=== PATIENT | female | born 1945 | race American Indian/Alaskan Native ===

== ENCOUNTER 2017-09-14 08:53 | Day surgery (SDC) | payer MEDICARE ==
[2017-09-14] MEDS ORDERED: Propofol 10 mg/ml Inj (20 ML) ONE (12:00)
[2017-09-14 12:44] VITALS: TEMP 97.3
[2017-09-14 13:17] VITALS: PULSE 54
[2017-09-14 13:57] VITALS: BP 122/64; RESP 16; O2SAT 98
== END 2017-09-14 13:54 | disposition home or self-care (01) ==
LOC: C.ENDO 08:53
PROVIDERS: ATTEND Internal Medicine
DX: Z86.010 Personal history of colon polyps (principal); K52.9 Noninfective gastroenteritis and colitis, unspecified; K57.30 Diverticulosis of large intestine without perforation or abscess without bleeding; K64.8 Other hemorrhoids
CPT/HCPCS: 45380; 88305; J2704